=== PATIENT | male | born 1950 | race Caucasian/White ===

== ENCOUNTER 2017-01-08 12:20 | Emergency (ER) | payer OTHER ==
[2017-01-08] MEDS ORDERED: LIDOCAINE 2% JELLY 20 ML (UROJECT) UR ONE (12:46)
[2017-01-08 13:10] LABS: MUCUS TRACE /lpf (NONE-1+)
--- NOTE | 2017-01-08 13:50 | EDPHY ---
H & P Stated Complaint: unable to urinate fully/large prostate Time Seen by Provider: 01/08/17 12:41 HPI/ROS: CHIEF COMPLAINT: unable to urinate HISTORY OF PRESENT ILLNESS: 66-year-old male with history of enlarged prostate presents emergency department unable to urinate. Patient reports he woke up at 1 o'clock in the morning feeling like he needed to empty his bladder and he was unable to. He was awake most of the night uncomfortable. He woke up this morning feeling feverish, he took ibuprofen, he was then able to urinate a small amount. Patient presents emergency department complaining of pressure in his bladder. Patient denies nausea, vomiting or diarrhea, no recent illness, no burning with urination. Patient has had multiple biopsies of his prostate as he has a elevated PSA, they are all normal. He sees Dr. Vernon Patterson who was unable to see him in office today though he has an appointment tomorrow at 11:00 a.m. REVIEW OF SYSTEMS: A comprehensive 10 point review of systems is otherwise negative aside from elements mentioned in the history of present illness. Source: Patient Exam Limitations: No limitations - Personal History Current Tetanus/Diphtheria Vaccine: Yes Tetanus Vaccine Date: < 5 years - Medical/Surgical History Hx Asthma: No Hx Chronic Respiratory Disease: No Hx Diabetes: No Hx Cardiac Disease: Yes Hx Renal Disease: No Hx Cirrhosis: No Hx Alcoholism: No Hx HIV/AIDS: No Hx Splenectomy or Spleen Trauma: No Other PMH: hypertension, left hip surg, knee surgery, appendectomy/cardiac stents - Social History Smoking Status: Former smoker - Physical Exam Exam: Physical Exam Gen: Alert and Oriented, NAD HEENT: PERRL, moist mucous membranes NECK: no meningismus CV: regular rate and regular rhythm PULM: CTAB, no wheezes ABDOMEN: soft, non tender to palpation, BS present BACK: No CVA tenderness NEURO: Neurologically grossly intact EXTREMITIES: normal appearing SKIN: no rash or break in skin on exposed skin PSYCH: answers questions appropriately. Constitutional: Initial Vital Signs Temperature (C) 36.3 C 01/08/17 12:32 Heart Rate 82 01/08/17 12:32 Respiratory Rate 18 01/08/17 12:32 Blood Pressure 149/92 H 01/08/17 12:32 O2 Sat (%) 94 01/08/17 12:32 O2 Delivery Mode Room Air Allergies/Adverse Reactions: No Known Allergies Allergy (Verified 01/08/17 12:24) Home Medications: Medication Instructions Recorded Aspirin 81mg (*) 01/08/17 Atorvastatin Calcium 01/08/17 Carvedilol 01/08/17 Losartan Potassium 01/08/17 Medical Decision Making ED Course/Re-evaluation: Pendleton catheter was placed, 1000 mL of pink tinged urine out. Patient immediately had relief reports no further complaints. Patient is discharged with a leg bag with Pendleton catheter in place. He agrees to follow up with Dr. Patterson tomorrow at 11:00 a.m.. Urinalysis is unremarkable. - Data Points Laboratory Results: 01/08/17 01/08/17 12:40 12:40 Urine Color YELLOW Urine Appearance CLEAR Urine pH 5.0 (5.0-7.5) Ur Specific [place] 1.012 (1.002-1.030) Urine Protein NEGATIVE (NEGATIVE) Urine Ketones NEGATIVE (NEGATIVE) Urine Blood NEGATIVE (NEGATIVE) Urine Nitrate NEGATIVE (NEGATIVE) Urine Bilirubin NEGATIVE (NEGATIVE) Urine Urobilinogen NEGATIVE EU EU (0.2-1.0) Ur Leukocyte Esterase NEGATIVE (NEGATIVE) Urine RBC 5-10 /hpf H /hpf (0-3) Urine WBC 1-3 /hpf /hpf (0-3) Ur Epithelial Cells Not Reported Urine Mucus TRACE /lpf /lpf (NONE-1+) Ur Culture Indicated? NOT INDICATED (NI) Urine Glucose NEGATIVE (NEGATIVE) Medications Given: Discontinued Medications Lidocaine (Uroject Lidocaine 2% Jelly) 20 ml UR EDNOW ONE Stop: 01/08/17 12:47 Last Admin: 01/08/17 13:19 Dose: 20 ml Departure - Departure Disposition: Home, Routine, Self-Care Clinical Impression: Urinary retention Condition: Good Instructions: Urinary Retention in Men (ED), Pendleton Catheter Placement and Care (ED) Additional Instructions: Follow-up with Dr. Patterson as scheduled tomorrow. Return to the emergency department for any new symptoms or concerns. Referrals: Kris Patterson MD [Medical Doctor] - As per Instructions
[2017-01-08 14:17] LABS: COLOR YELLOW; LEUKOCYTE ESTERASE,URINE NEGATIVE (NEGATIVE); NITRITE,URINE NEGATIVE (NEGATIVE)
[2017-01-08 14:28] VITALS: BP 136/87; PULSE 78; RESP 20; TEMP 98.2; O2SAT 95
== END 2017-01-08 14:59 | disposition home or self-care (01) ==
PROC: 0T9B70Z Drainage of Bladder with Drainage Device, Via Natural or Artificial Opening (ICD-10-PCS; principal; 2017-01-08)
DX: R33.9 Retention of urine, unspecified (principal); I10 Essential (primary) hypertension; Z87.891 Personal history of nicotine dependence; Z79.82 Long term (current) use of aspirin

== ENCOUNTER 2018-10-14 06:10 | Emergency (ER) | payer OTHER ==
[2018-10-14] MEDS ORDERED: DIAZEPAM 5 MG TAB PO ONE (06:47)
[2018-10-14] MEDS ORDERED: IBUPROFEN 200 MG TAB PO ONE (06:47)
[2018-10-14] MEDS ORDERED: ACETAMINOPHEN 500 MG TAB PO ONE (06:47)
--- NOTE | 2018-10-14 06:47 | EDPHY ---
H & P Stated Complaint: sciatica Time Seen by Provider: 10/14/18 06:11 HPI/ROS: HPI The patient presents with low back pain which radiates to his right leg for the last 1 week though became worse this morning. He is brought in by ambulance. He received fentanyl 200 mcg EN route and now is feeling much better. He was doing some deep squats about 1 week ago as treatment for some knee problems that he has. He noticed some mild pain, however this pain became more severe over the course of the week. The pain begins in his mid lower back on the right side and radiates to his lateral thigh into his knee. This is associated with some tingling of his thigh. He went to see a chiropractor and has been doing some home exercises which have helped the pain. He is taking ibuprofen which has helped somewhat. He denies any weakness of his leg, any falls, any direct trauma. He has not had any changes in his bowel or bladder function. He has not had a fever. REVIEW OF SYSTEMS 10 systems were reviewed and negative with the exception of the elements mentioned in the history of present illness. PMHx: CAD, hypertension, hyperlipidemia, arthritis of hip and knee, followed by Dr. Daniella Kelsey of [facility] Hx: Housed with his , working PHYSICAL General Appearance: Alert, no distress Eyes: Pupils equal and round no pallor or injection ENT, Mouth: Mucous membranes moist Respiratory: There are no retractions, lungs are clear to auscultation Cardiovascular: Regular rate and rhythm Gastrointestinal: Abdomen is soft and non-tender, no masses, bowel sounds normal Neurological: A&O, 5/5 strength in dorsi and plantar flexion of his feet, knee strength is 5/5 in flexion and extension, hip strength is 5/5 in flexion and extension, sensation is intact to light touch throughout his legs and is symmetric, negative straight leg raise bilaterally Skin: Warm and dry, no rashes Musculoskeletal: There is tenderness in the lower lumbar spine in the new right paraspinal region without any midline tenderness, there is no muscle wasting Extremities: symmetrical, full range of motion Psychiatric: Patient is oriented X 3, there is no agitation Source: Patient Exam Limitations: No limitations - Personal History Tetanus Vaccine Date: < 5 years - Medical/Surgical History Hx Asthma: No Hx Chronic Respiratory Disease: No Hx Diabetes: No Hx Cardiac Disease: Yes Hx Renal Disease: No Hx Cirrhosis: No Hx Alcoholism: No Hx HIV/AIDS: No Hx Splenectomy or Spleen Trauma: No Other PMH: hypertension, left hip surg, knee surgery, appendectomy/cardiac stents - Social History Smoking Status: Former smoker Constitutional: Initial Vital Signs Temperature (C) 36.8 C 10/14/18 06:10 Heart Rate 85 10/14/18 06:10 Respiratory Rate 16 10/14/18 06:10 Blood Pressure 164/120 H 10/14/18 06:10 O2 Sat (%) 90 L 10/14/18 06:10 O2 Delivery Mode Room Air Allergies/Adverse Reactions: No Known Allergies Allergy (Verified 10/14/18 06:19) Home Medications: Medication Instructions Recorded Aspirin 81mg (*) 01/08/17 Atorvastatin Calcium 01/08/17 Carvedilol 01/08/17 Losartan Potassium 01/08/17 Diazepam [Valium 5 MG (*)] 5 mg PO TID PRN #15 tab 10/14/18 methylPREDNISolone [Medrol Dose 4 mg PO DAILY 6 Days ea 10/14/18 Meet] Medical Decision Making Differential Diagnosis: 67-year-old man presents with low back pain which travels to his lateral thigh and knee which has been present for the last 1 week though became much worse last night while trying to sleep. On history, he does not have any fever, weakness. His physical exam demonstrates full strength. He does not have any bowel or bladder changes. I suspect he has a lumbar radiculopathy and I have explained this to him. He is already followed by Dr. Kelsey of Orthopedics and I have encouraged him to follow up with her for further care. I will treat him with ibuprofen, Tylenol, Medrol Dosepak, Valium. I have discussed adjunct for pain including warm compresses, gentle exercise. He may benefit from physical therapy. Departure - Departure Disposition: Home, Routine, Self-Care Clinical Impression: Radicular pain of right lower back Condition: Good Instructions: Lumbar Radiculopathy (ED), Lower Back Exercises (ED) Additional Instructions: I recommend that you take ibuprofen 400 mg with acetaminophen 1000 mg every 6 hr as needed for pain. If the pain is still present after you take these medications you can take the prescription for Valium as needed. I recommend you take the Medrol Dosepak as well. I would like for you to follow up with Dr. Kelsey in the next few days. He may benefit from physical therapy or possibly an MRI. You can return to the emergency department if your worse in any way. Referrals: Daniella Kelsey MD [Medical Doctor] - As per Instructions Prescriptions: Diazepam [Valium 5 MG (*)] 5 mg PO TID PRN #15 tab PRN Reason: Spasms methylPREDNISolone [Medrol Dose Meet] 4 mg PO DAILY 6 Days ea
[2018-10-14] MEDS ORDERED: DEXAMETHASONE 10 MG/ML VIAL IVP ONE (07:01)
[2018-10-14 08:09] VITALS: BP 156/98
== END 2018-10-14 08:06 | disposition home or self-care (01) ==
LOC: EDUNIT#
DX: M54.16 Radiculopathy, lumbar region (principal); I10 Essential (primary) hypertension; Z87.891 Personal history of nicotine dependence
CPT/HCPCS: 96374; 99284; J1100